=== PATIENT | female | born 1990 | race Two or more races ===

== ENCOUNTER 2018-04-11 02:55 | Emergency (ER) | payer MEDICAID, OTHER ==
[~2018-04-11] VITALS: Ht 152.4 cm; Wt 56.8 kg
[2018-04-11 02:59] VITALS: BP 133/94
[2018-04-11 05:35] LABS: URINE HCG NEGATIVE (NEG)
[2018-04-11] MEDS ORDERED: LIDOcaine Viscous 15ml cup MM ONE (05:55)
== END 2018-04-11 06:44 | disposition home or self-care (01) ==
LOC: ER 02:55 → EEVIPCON 02:55 → ER 06:44
DX: Z04.41 Encounter for examination and observation following alleged adult rape (principal)
CPT/HCPCS: 81025; 99283

== ENCOUNTER 2018-04-15 06:12 | Emergency (ER) | payer OTHER ==
[~2018-04-15] VITALS: Ht 152.4 cm; Wt 45.4 kg
[2018-04-15 06:18] VITALS: BP 123/64
== END 2018-04-15 07:05 | disposition home or self-care (01) ==
LOC: ER 06:12
DX: Z00.00 Encounter for general adult medical examination without abnormal findings (principal); F17.200 Nicotine dependence, unspecified, uncomplicated
CPT/HCPCS: 99281